=== PATIENT | male | born 1945 | race Caucasian/White ===

== ENCOUNTER 2022-10-27 05:58 | Day surgery (SDC) | payer MEDICARE ==
[2022-10-24 08:40] VITALS: BMI 37.7
[~2022-10-27 05:58] MED LIST: ALPRAZolam 0.25 MG TAB PO PRN; ALPRAZolam 0.5 MG TAB PO PRN; ASPIRIN 325 MG TAB PO STA; NITROGLYCERIN SL TABS 0.4 MG TAB SUBLINGUAL PRN; SODIUM CHLORIDE 0.9% 1,000 ML in EMPTY BAG 1 BAG IV SCH
[2022-10-27] MEDS ORDERED: ASPIRIN 81 MG ONE (06:23)
[2022-10-27 06:33] VITALS: RESP 18; TEMP 97.8
[2022-10-27 06:58] LABS: Basophils # (A) 0.1 k/uL (0-0.2); Basophils % (A) 1 %; Eosinophils # (A) 0.3 k/uL (0-0.7); Eosinophils % (A) 5 %; HCT 39.7 % (39.0-53.0); HGB 13.2 gm/dL (13.0-17.5); Lymphocytes # (A) 1.2 k/uL (1.0-4.8); Lymphocytes % (A) 19 %; MCH 29.5 pg (25.0-35.0); MCHC 33.2 g/dL (31.0-37.0); MCV 88.9 fL (80.0-100.0); Mean Platelet Volume 7.7; Monocytes # (A) 0.6 k/uL (0-1.0); Monocytes % (A) 10 %; Neutrophils % (A) 63 %; Platelet Count 210 k/uL (150-450); RBC 4.47 m/uL (4.30-5.90); RDW 13.9 % (11.5-15.5); WBC 6.3 k/uL (3.8-10.6)
[2022-10-27 07:01] LABS: Calcium 8.7 mg/dL (8.4-10.2); Potassium 4.5 mmol/L (3.5-5.1)
[2022-10-27] MEDS ORDERED: VERAPAMIL 2.5 MG/ML 2 ML AMP ONE (07:13)
[2022-10-27] MEDS ORDERED: HEPARIN SODIUM 1,000 UN/ML (10ML VL) ONE (07:24)
[2022-10-27] MEDS ORDERED: MIDAZOLAM 2 MG/2 ML VIAL IV ONE (07:55)
[2022-10-27] MEDS ORDERED: LIDOCAINE 1% INJ 10MG/ML (5 ML VIAL-PF) SQ ONE (08:04)
[2022-10-27] MEDS ORDERED: HEPARIN SODIUM 1,000 UN/ML (10ML VL) IV ONE (08:05)
[2022-10-27] MEDS ORDERED: VERAPAMIL SYRINGE (5 MG/10 ML) INTRAARTER ONE (08:07)
[2022-10-27] MEDS ORDERED: IOPAMIDOL-370 125ML BTL INJ ONE (08:18)
[2022-10-27] MEDS ORDERED: RX INFO: IV CONTRAST WAS GIVEN 1 EACH MISC MISCELLANE PRN (08:21)
--- NOTE | 2022-10-27 08:24 | P.PCN ---
Date of Procedure: 10/27/22 Operative Findings: CARDIAC CATHETERIZATION PERFORMING PHYSICIAN: Winston Rios MD, RPVI PROCEDURE PERFORMED: 1. Selective right and left coronary angiogram 2. Left heart catheterization INDICATION: Chest discomfort in this 77-year-old gentleman who is known to have CAD documented by coronary CT calcium score as well as multiple risk factors. There was a concern about severe triple-vessel CAD. COMPLICATION: None APPROACH: Right radial artery LEVEL OF SEDATION: Moderate with a sedation length of 15 minutes PROCEDURE DESCRIPTION: After obtaining an informed consent, the patient was brought to cardiac produce laborer. Local anesthesia was performed using lidocaine subcutaneously. The right radial artery was cannulated using Seldinger technique, the guidewire passed easily, following that we advanced a 5-Scottish sheath dilator assembly, the wire and dilator were removed and sheath was flushed. Following that, 2 mg of verapamil along with 5000 unit heparin were given. Selective right and left coronary angiogram using a 6-Scottish JR4 and JL 3.5 catheters. Following that we did left heart catheterization using 6-Scottish pigtail catheter. The procedure was completed there was no complication. SELECTIVE CORONARY ANGIOGRAM: The right coronary artery: Large caliber vessel and a dominant vessel. The RCA has mild disease only. Distally bifurcates into PDA and PLV branches and both appeared to be angiographically normal Left main: As mild disease only in the range of 10-20% only. Bifurcates into LCx and LAD The left circumflex: Large caliber vessel and nondominant vessel. The LCx has mild disease only. It gives rises into first and second and third OM and/or appeared to have mild disease only The left anterior descending artery: Large caliber vessel. The LAD has mild disease only. Gives rises into first and second diagonal branches there appears to be angiographically normal HEMODYNAMICS: LVEDP was 18 mmHg was no significant gradient across aortic valve CONCLUSION: 1. Mild nonobstructive coronary artery disease 2. Mildly elevated left-sided filling pressure POSTPROCEDURE MANAGEMENT: Medical treatment and follow-up with the patient
[2022-10-27] MEDS ORDERED: SODIUM CHLORIDE 0.9% 1,000 ML IV SCH (08:30)
[2022-10-27 11:35] VITALS: BP 146/86; PULSE 52
== END 2022-10-27 12:34 | disposition home or self-care (01) ==
LOC: CATHCVL 05:58
PROVIDERS: ATTEND Internal Medicine Interventional Cardiology
DX: I25.10 Atherosclerotic heart disease of native coronary artery without angina pectoris (principal); E78.5 Hyperlipidemia, unspecified; I10 Essential (primary) hypertension; Z87.891 Personal history of nicotine dependence; Z79.899 Other long term (current) drug therapy
CPT/HCPCS: 99152; 93458; 80048; 85025; C1769 ×2; C1894; J2250; J2001; J1644; Q9967